=== PATIENT | male | born 2000 | race Hispanic/Latino ===

== ENCOUNTER 2022-02-06 13:00 | Emergency (ER) | payer OTHER ==
[2022-02-06] MEDS ORDERED: Boostrix 0.5 ML (Tdap) VIAL (>/=7 yrs of age) ONE (14:04)
[2022-02-06] MEDS ORDERED: Lidocaine 1% PF 5 ML VIAL ONE (14:04)
[2022-02-06] MEDS ORDERED: Bacitracin 1 PK ONE (15:13)
== END 2022-02-06 15:14 | disposition home or self-care (01) ==
LOC: ERS 13:00
DX: S02.2XXA Fracture of nasal bones, initial encounter for closed fracture (principal); S01.21XA Laceration without foreign body of nose, initial encounter; V28.0XXA Motorcycle driver injured in noncollision transport accident in nontraffic accident, initial encounter; Y93.55 Activity, bike riding; Y92.828 Other wilderness area as the place of occurrence of the external cause; Z23 Encounter for immunization
CPT/HCPCS: 12011; 90471; 90715